=== PATIENT | male | born 1945 | race Caucasian/White ===

== ENCOUNTER 2023-03-14 14:15 | Outpatient (AMB) | payer MEDICARE, SELFPAY ==
--- NOTE | 2023-03-14 14:24 | MHC.OFFVIS ---
Intake Vital Signs 03/14/23 14:25 Height 6 ft Weight 159 lb 4 oz BMI 21.6 BP 134/72 Blood Pressure Location Rt brachial Position Sitting Pulse 63 Pulse Source Pulse Oximeter Pulse Oximetry (%) 97 Oxygen Delivery Method Room Air Intake Visit Reasons: NPV-Severe Cog decline/met melanoma Intake Note: Patient presents for severe cognitive decline Allergies No Known Allergies Allergy (Verified 03/14/23 14:26) Medication List - Last Reconciled 03/14/23 by Jinny Rodriguez MD aspirin 81 mg PO DAILY difluprednate 0.05% 1 drp ophthalmic (eye) BID ipilimumab ([place]) 60 mg IV Q6W metoprolol succinate ER 12.5 mg PO DAILY multivitamin 1 tab PO DAILY nivolumab IV simvastatin 40 mg PO DAILY HPI HPI Comments History of Present Illness Details 77y/o male with metastatic melanoma with recent brain mets with good response to immunotherapy comes for evaluation of an cognitive difficulty and episode of transient global amnesia in 2011 . He had melanoma about 20 years ago and was followed up for 5 years. In 2021 he noticed some lesions - was found to have melanoma with metastasis to abdomen and asymptomatic brain mets. He was very week , lost 40 lbs and could not eat. He had cognitive issues, short term memory issues confusion at that time . He was started on immunotherapy and thompson sbeen doing well since then . His repeat Brain MRI January 2023 did not show any enhancing lesions. In 2011 he had an episode of Transient Global amnesia and was evaluated by Dr. Pickard. [facility] Medical History (Updated 03/14/23 @ 15:19 by Jinny Rodriguez MD) CAD (coronary artery disease) Cognitive change HTN (hypertension) Hyperlipidemia Metastatic melanoma Surgical History H/O heart artery stent Hx of appendectomy Family History Father Cancer Social History Alcohol intake: never Patient Tobacco Use Status: Never used Tobacco Review of Systems Const Reports weight gain Neuro Reports memory loss Psych Reports memory loss Physical Exam Vital Signs: Last Vital Signs Pulse 63 03/14/23 14:25 BP 134/72 03/14/23 14:25 Pulse Ox 97 03/14/23 14:25 Oxygen Delivery Method Room Air 03/14/23 14:25 BMI result Body Mass Index 21.6 Const General: cooperative, healthy appearing, comfortable and no acute distress Nutritional Appearance: average body habitus Orientation/consciousness: patient oriented x3 Limitations: no limitations Neuro General: patient oriented x3, gait normal, tone normal, moves all extremities and no focal motor deficits Cranial nerves: Yes Facial sensation intact/muscles of mastication intact, Yes Bilaterally intact EOM present, Yes Nystagmus not present, Yes Normal facial strength present, Yes Midline tongue present and Yes Symmetric palate elevation present Cognition (Neuro): normal cognition Gait exam (Neuro): Normal gait present Motor exam (neuro): 5/5 motor strength present throughout and Normal motor muscle tone present throughout Deep tendon reflexes (DTR's): Right triceps reflex intensity grade: 1+, Left triceps reflex intensity grade: 1+, Rt Biceps (C5, C6): 1+, Left biceps reflex intensity grade: 1+, Right brachioradialis reflex intensity grade: 1+, Left brachioradialis reflex intensity grade: 1+, Right patellar reflex intensity grade: 1+ and Left patellar reflex intensity grade: 1+ Coordination: [id number] test normal Orientation What is the (year) (season) (date) (day) (month)?: year, season, date, day and month Where are we (state) (county) (town or city) (hospital) (floor)?: state, county, town or city, hospital/clinic and floor Registration Name of 3 unrelated objects clearly and slowly, then ask patient to repeat all 3 of them. (1st repeat determines score. Make sure they can repeat all three): object 1, object 2 and object 3 Attention & Calculation (CHOOSE ONE) Spell WORLD backwards (DLROW): 4 letters Recall Ask patient to repeat the 3 items from question #3.: object 1 Language Show patient a wristwatch & ask what it is. Repeat for pencil.: watch and pencil Ask the patient to repeat the phrase 'No ifs, ands, or buts' after you.: correct Ask the patient to 'take a piece of paper with their right hand' 'fold paper in half' 'place paper on floor': take paper in right hand, fold paper in half and place paper on floor Print the sentence 'CLOSE YOUR EYES' on a piece. If patient actually closes eyes then score.: followed written direction Give patient a blank piece of paper & ask to write a sentence. Score if it contains a noun & verb.: sentence contains subject and verb Ask patient to copy figure of intersecting pentagons exactly. Score if all 10 angles & 2 intersects are included.: all 10 angles present & 2 are intersected Score Score: 27 Assessment & Plan Assessment & Plan (1) Cognitive change: Code(s): R41.89 - Other symptoms and signs involving cognitive functions and awareness Plan His cognitive change was likely relate to his systemic illness He is doing well on immunotherapy with absence of enhancing lesions in recent MRI brain He did well on MMSE and neuro exam was nonfocal. I will follow him up as needed. Coding Level of Care Code New Pt Level 4 (89543) Diagnoses Cognitive change R41.89
[2023-03-14 14:25] VITALS: BP 134/72; PULSE 63; O2SAT 97; BMI 21.6
== END 2023-03-14 15:17 | disposition home or self-care (01) ==
LOC: HO.HSMS 14:15
PROVIDERS: PCP Internal Medicine; Visit Provider Psychiatry & Neurology Neurology
DX: R41.89 Other symptoms and signs involving cognitive functions and awareness (principal)
CPT/HCPCS: 99204

== ENCOUNTER → 2023-03-14 14:15 | Outpatient (BNVA) | payer MEDICARE, SELFPAY | PROVIDERS: PCP Internal Medicine; Visit Provider Psychiatry & Neurology Neurology | DX: R41.81 Age-related cognitive decline (principal); C79.89 Secondary malignant neoplasm of other specified sites; C79.31 Secondary malignant neoplasm of brain; Z92.25 Personal history of immunosuppression therapy | CPT/HCPCS: 99202 ==